=== PATIENT | female | born 1950 | race Caucasian/White ===

== ENCOUNTER → 2020-09-27 11:30 | Outpatient (CLI) | payer OTHER, SELFPAY ==
[2020-09-27 13:31] LABS: COVID19 -Nasal RAPID Negative (Negative)
== END ==
PROVIDERS: PCP Nurse Practitioner Family; Visit Provider Physician Assistant
DX: Z20.822 Contact with and (suspected) exposure to COVID-19 (principal)
CPT/HCPCS: 87635

== ENCOUNTER 2020-09-29 08:49 | Day surgery (SDC) | payer OTHER, SELFPAY ==
[2020-09-29] VITALS (22 sets, daily range): BP systolic 108–161; BP diastolic 50–92; PULSE 59–87; RESP 11–96; TEMP 35.8–36.5; O2SAT 90–98; BMI 48.2
--- NOTE | 2020-09-29 09:25 | DI.RAD.S_ITS ---
PROCEDURE: XR KNEE RT 1TO2V INDICATIONS: post op total knee TECHNIQUE: 3 views of the knee were acquired. COMPARISON: None. FINDINGS: Bones: Right knee arthroplasty overlying postsurgical changes. In expected postoperative alignment. Soft tissues: Overlying postsurgical changes. IMPRESSION: Expected postoperative alignment Dictated by: Dread Jiménez M.D. on 09/29/2020 at 15:14 Approved by: Dread Jiménez M.D. on 09/29/2020 at 15:16
[2020-09-29] MEDS: LACTATED RINGERS 1,000 ML 42 ML IV ×2 (09:55→12:56)
--- NOTE | 2020-09-29 09:58 | PM.PREOP ---
Pre-operative Note COVID-19 COVID-19 status: Negative Result date/Date tested (Pos, Neg/Pending): 09/27/20 Interval Note History & Physical reviewed/Exam performed by Physician: Yes Changes to H&P: No
[2020-09-29] MEDS: PREGABALIN 75 MG CAPSULE PO (09:59)
[2020-09-29] MEDS: ACETAMINOPHEN 325 MG TABLET 975 MG PO (10:00)
--- NOTE | 2020-09-29 10:20 | P.OP_ITS ---
Operative Date/Time/Diagnoses Date of procedure: 09/29/20 Time of procedure: 12:57 Pre-op diagnosis: Right knee osteoarthritis Post-op diagnosis: same Procedure & Clinicians Procedure: Right total knee replacement Same procedure as scheduled: Yes Indications: The patient has had progressively worsening right knee pain with radiographic changes consistent with arthritis. Non-operative management has failed and the patient has requested total knee replacement. The risks, benefits and alternatives to surgery were discussed with the patient prior to proceeding. Risks discussed included, but were not limited to, failure to relieve pain, stiffness, infection, nerve damage, deep venous thrombosis, pulmonary embolism, stroke, coma, heart attack, permanent paralysis and , as well as the potential need for eventual revision of the prosthetic. Surgeon: Emanuel Dan [employer] Head Inspector: Mac Bhandari Click Yes if Unassisted: No Anesthesia Type: General and Local Operative Notes Findings: Severe tricompartmental osteoarthritis with large osteophytes. Closure Type: primary Specimen(s): none sent Prosthetic devices, grafts, tissues, transplants, or devices: Implants used in this procedure were manufactured by the [employer] and included the BCS II Journey total knee replacement with a size 5 right cobalt chromium femur, a size 4 right non porous tibial base plate, a 10 mm cross- linked polyethylene insert and a 29 mm oval Arely II patella. Applied: implant(s) Estimated Blood Loss (mL): 25 Blood products transfused: none Tourniquet time (min): 62 Procedure in detail: The patient was seen in the pre-operative area, where the patient identified the right knee as the operative site and this was marked with my initials. The patient received pre-operative antibiotics, and was taken to the operating room and placed on the operative table in the supine position. After satisfactory anesthesia, a payroll master out was performed. The right leg was encircled with a tourniquet about the proximal thigh, and the leg was prepared from the toes to the tourniquet with ChloroPrep in the usual fashion and draped through sterile drapes. The leg was elevated and exsanguinated with Eschmark bandage and the tourniquet inflated to 250 mmHg pressure. The knee was approached through an approximately 18 cm incision centered over the patella and carried into the knee through a medial parapatellar arthrotomy. The anterior osteophytes and soft tissues were removed. The rotational landmarks of Butterfield's line and the transepicondylar axis were marked on the femur with electrocautery, and intramedullary guide holes for the femur and tibia were created. The distal femoral cut was made in 6 degrees of valgus using the intramedullary guide at the primary cut setting. The proximal tibial cut was then made using the intramedullary guide, taking 9 mm of bone off the less involved side. The extension gap was checked and the rotation of the femoral component confirmed with the gap balancing system. The anterior, posterior and chamfer cuts were then made. The posterior osteophytes and soft tissues were then removed. The posterior capsule was injected with part of a mixture of 60 ml 0.25% Marcaine mixed with 20 ml Exparel and 4 mg of morphine for post-operative pain control. The remainder of this mixture was injected into the capsule and subcutaneous tissues during cement curing. The tibia was prepared with the rotation set by an extra medullary guide. Trial tibial and femoral components were then placed and the intercondylar notch cut through the femoral trial. Range of motion was 0-120 degrees with further flexion limited by the patient's body habitus, with good stability throughout the range. The patella was then cut to accommodate the patellar prosthetic. There was a tendency for lateral tilt of the patella, so a ?pie crust? lateral release was performed. The trials were then removed, and the femoral hole plugged with a bone plug. The bone was prepared with pulsatile lavage, and dried with a sponge. Cement was applied and the final prosthetics placed. Excess cement was removed during and after cement curing. After confirming there was no extruded cement posteriorly, the final tibial insert was placed. The knee was copiously irrigated and the tourniquet deflated. Hemostasis was obtained. The capsule was closed with interrupted # 2 polyester suture. The subcutaneous layer was closed with 3-0 Vicryl, and the skin with a running 3-0 V-Lock suture and Dermabond. A Caryn dressing was applied and the patient was taken to recovery having tolerated the procedure well. Complications: none Post-operative Condition: stable Disposition: PACU Plan for aftercare: The patient will be maintained on a standard total knee replacement protocol with weight bearing as tolerated. The patient will receive aspirin and sequential compression devices for DVT prophylaxis. The patient will be discharged home when safe for the home environment.
[2020-09-29] MEDS: CEFAZOLIN 2 GM/100 ML FROZ.PIGGY IV (10:48)
[2020-09-29] MEDS: TRANEXAMIC ACID 1,000 MG VIAL 1000 MG INJ ×2 (10:55→12:13)
--- NOTE | 2020-09-29 11:11 | SUR.OPER ---
Supine on padded OR bed. Pillow under head, arms secured on padded armboards <90 degree abduction. Safety belt across torso. Non-operative leg secured with tape over blanket over lower leg. Operative leg secured in DeMayo/Rene positioner.
[2020-09-29] MEDS: BUPIVACAINE 0.25% W/ EPI (PF) 10 ML VIAL 60 ML INJ (11:18)
[2020-09-29] MEDS: BUPIVACAINE LIPOSOME 266 MG/20 ML VIAL INJ (11:19)
[2020-09-29] MEDS: MORPHINE 4 MG/ML INJ INJ (11:20)
[2020-09-29] MEDS: OXYCODONE IR 5 MG TABLET PO ×3 (13:35→15:15)
[2020-09-29] MEDS: HYDROMORPHONE 2 MG INJ IV ×2 (13:35→13:57)
--- NOTE | 2020-09-29 14:29 | SUR.PHASEI ---
Caryn dressing was flashing red light, notified Shahriar WINTER, attempted to reinforce dressing 2x, still leaking. Ok to change dressing per Shahriar. Dressing changed, no leak. no sayda wrap in place.
[2020-09-29] MEDS: LACTATED RINGERS 1,000 ML 100 ML IV (14:53)
[2020-09-29] MEDS: ACETAMINOPHEN 325 MG TABLET 650 MG PO ×2 (15:15→21:16)
[2020-09-29] MEDS: HYDROMORPHONE 0.5 MG INJ 0.2 MG IV (16:45)
[2020-09-29] MEDS: OXYCODONE IR 10 MG TABLET PO ×2 (18:19→21:16)
[2020-09-29] MEDS: DOCUSATE 100 MG CAPSULE PO (21:15)
[2020-09-29] MEDS: hydrOXYzine pamoate 25 MG CAPSULE PO (21:16)
[2020-09-29] MEDS: ASPIRIN EC 81 MG TABLET PO (21:16)
--- NOTE | 2020-09-29 21:52 | PC.NURSE ---
Evening Shift Note- Patient arrived to room via bed from PACU at 1440. Patient alert and oriented and able to able to make needs known to staff. PRN PO Oycodone given as ordered per patient request for c/o pain at 4-510. Patient tolerated with no s/s of ASE noted. Admit questions done, medications reviewed, physical assessment and skin check conpleted. oriented patient to bed and bed controls, room, bathroo, lights, ohone, menu, nd call monk/tv remote. YOCASTA dressing c/d/i and functioning properly at this time.Safety measures in place. Patient agrees [facility] assistance. bed alarm activated. Call monk and phone within reach. Will continue to monitor.
[2020-09-30] MEDS: HYDROMORPHONE 2 MG TABLET PO ×2 (00:08→03:41)
[2020-09-30] MEDS: LACTATED RINGERS 1,000 ML 100 ML IV (03:06)
[2020-09-30 04:00] VITALS: BP 133/81; PULSE 70; RESP 18; TEMP 36.6; O2SAT 96
[2020-09-30 05:55] LABS: Hematocrit 39.7 % (36-46); Hemoglobin 13.2 g/dL (12.0-16.0)
[2020-09-30] MEDS: PANTOPRAZOLE 20 MG TABLET PO (06:51)
[2020-09-30] MEDS: OXYCODONE IR 5 MG TABLET PO (06:53)
[2020-09-30 07:24] VITALS: PULSE 61; RESP 16; O2SAT 95
--- NOTE | 2020-09-30 07:43 | P.DS_ITS ---
History of Present Illness History of Present Illness Date Patient Seen: 09/30/20 Time Patient Seen: 07:43 Chief complaint: RIGHT TKA *OPB* Discharge Providers Provider Discharge Date: 09/30/20 Primary care physician: SHERIE De La Garza Consults: 09/29/20 14:44 Consult to Discharge Planning Routine Comment: Consult to Physical Therapy Evaluate & Treat Comment: Physician Instructions: postop TKA protocol Consult to Respiratory Therapy Evaluate & Treat Comment: Physician Instructions: Evaluate and treat Discharge provider: Melvin Pena PA-C Summary Hospital Course Discharge Diagnosis: Right knee osteoarthritis Status post right total knee arthroplasty Hospital Course: Female 70 years-old with the above-listed diagnoses consented for the above listed procedure presenting to the OR undergoing said procedure without difficulty or complication and admitted for rehabilitation postoperatively and appropriately convalesced without significant issue at the time of discharge the patient was stable for disposition plan without significant complaints and verbalized understanding of postoperative care inst ructions and follow-up in clinic for re-evaluation or sooner as needed. Status at Discharge Cognitive/behavioral status at discharge: oriented Functional status at discharge: uses cane/walker Overall status at discharge: patient is progressing back to baseline Time Spent with Patient Time spent: Less than 30 minutes Exam Vital Signs (past 8 hours): - 09/30/20 04:00 09/30/20 07:24 Temperature 97.9 F Pulse Rate 70 61 Respiratory Rate 18 16 Blood Pressure 133/81 Pulse Oximetry 96 95 Oxygen Delivery Method Room Air Oxygen Flow Rate 0 Narrative Exam Narrative: Female 70 years-old seen resting comfortably in no apparent distress, alert and oriented x3. Regular heart rate and inspiratory effort. Dressing clean, dry and intact. Distal affected extremities are neurovascularly intact with no signs or symptoms of DVT. Objective Labs Result Diagrams: 09/30/20 05:25 Labs: Laboratory Results - last 24 hr 09/30/20 05:25 Hgb 13.2 Hct 39.7 PFSH Medical History (Updated 09/26/20 @ 16:02 by Emilia George RN) Arthritis Depression Fracture Headache, migraine History of benign breast biopsy Hypertension LAFB (left anterior fascicular block) Osteoporosis Primary osteoarthritis of right knee RBBB Thyroid disease Tumor of soft tissue of neck Social History household members: children Smoking Status: Never smoker alcohol intake: never Discharge Assessment & Plan Assessment and Plan Assessment: Right knee osteoarthritis Status post right total knee arthroplasty Plan of Treatment: Discharge home today. DVT prophylaxis aspirin 81 mg twice a day for 6 weeks. Weight bear as tolerated on right lower extremity. Right total knee care protocols apply. Follow-up in 2 weeks for re-evaluation or sooner as needed. Discharge Plan Discharge Plan Patient Disposition: Home Discharge orders & Medications Discharge Orders: Discharge (Order); Ordered 09/30/20 Ordered By: Melvin Pena Prescriptions: New aspirin 81 mg Tablet,Delayed Release (Dr/Ec) 81 mg PO BID Qty: 90 RF: 0 Continued fluticasone propionate 50 mcg/actuation Blister With Device 2 inh INHALATION DAILY RF: 0 alendronate 70 mg Tablet 70 mg PO DAILY RF: 0 omeprazole 20 mg Capsule,Delayed Release(Dr/Ec) 20 mg PO DAILY RF: 0 nystatin 100,000 unit/gram Powder 1 applic TOPICAL DAILY RF: 0 oxycodone 5 mg Tablet 5 - 10 mg PO Q3H PRN (Reason: Pain) RF: 0 rosuvastatin 10 mg Tablet 10 mg PO DAILY RF: 0 Follow up/Referrals: Cristiane Claudio ARNP [Primary Care Provider] - Emanuel Dan MD [Physician] - (F/U in 2 weeks) Diet/Activity/Treatments Diet: Diet as Tolerated Activity: The patient will be maintained on a standard total knee replacement protocol with weight bearing as tolerated. Cold/Heat Therapy: Ice 20 min / hr as tolerated. Other treatments: Take aspirin 81 mg by mouth twice daily for 6 weeks. Skin/Wound/Dressing Care Report to your healthcare provider any signs of infection, such as:: chills, fever, night sweats, increased pain, unusual drainage and unusual redness Dressing: Keep clean, dry and intact. Call as needed. Visit Report/Discharge Packet Instructions: DI for Knee Replacement Stand Alone Forms: Surgery Discharge Discharge Data Primary Care Provider: Cristiane Claudio Attending Provider: Emanuel Dan
[2020-09-30] MEDS: DOCUSATE 100 MG CAPSULE PO (08:30)
[2020-09-30] MEDS: ROSUVASTATIN 10 MG TABLET PO (08:30)
[2020-09-30] MEDS: ASPIRIN EC 81 MG TABLET PO (08:30)
[2020-09-30] MEDS: ACETAMINOPHEN 325 MG TABLET 650 MG PO (08:30)
[2020-09-30 08:47] VITALS: BP 116/70; PULSE 66; RESP 20; TEMP 36.2; O2SAT 96
--- NOTE | 2020-09-30 09:33 | PT.IIE ---
Current Diagnoses Unilateral primary osteoarthritis, right knee (09/29/20) Surgery Performed Operation Date: 09/29/20 10:45 Actual Procedures p Total Knee Arthroplasty(Right) - Emanuel Dan MD Medical History (Last Updated 09/26/20 @ 16:02 by Emilia George RN) Arthritis Depression Fracture Headache, migraine History of benign breast biopsy Hypertension LAFB (left anterior fascicular block) Osteoporosis Primary osteoarthritis of right knee RBBB Thyroid disease Tumor of soft tissue of neck Physical Therapy Inpatient Evaluation/Re-Eval M1 PT/OT-IP Prior Functional Status Start: 09/29/20 14:55 Freq: NEEDED Status: Active Protocol: Document 09/30/20 08:20 MB (Rec: 09/30/20 09:32 MB [id number]) Medical Review Prior Functional Status Medical History Reviewed Yes Diet/Fluid Consistency Regular Communication WNLs Mobility and Gait Gait with RW, went to pre-op OPPT visit Activities of Daily Living and IADL's Mod I and daughter assist as needed, lives with daughter, 2 steps and no rail to enter home, tub bench Social History Household Members children Living Arrangements House Number of Floors (Floors) One Floor Number of Stairs To Enter/Railing? 2 steps and no rail Home Equipment Front Wheel Walker,Tub Transfer Bench,Grab Bars Near Toilet,Grab Bars In Shower Employment Status Retired M2 PT-IP Current Condition Start: 09/29/20 14:55 Freq: NEEDED Status: Active Protocol: Document 09/30/20 08:20 MB (Rec: 09/30/20 09:32 MB [id number]) Physical Therapy Current Condition Current Condition Evaluation Date 09/30/20 Treatment Diagnosis R TKR Onset Date 09/29/20 Precautions Other Precautions WBAT right LE Weight Bearing Status Weight Bearing Status Weight Bear as Tolerated M3 PT-IP Subjective Start: 09/29/20 14:55 Freq: NEEDED Status: Active Protocol: Document 09/30/20 08:20 MB (Rec: 09/30/20 09:32 MB [id number]) Subjective Physical Therapy Visit Type Type Initial Evaluation Visit Start Time 08:20 Visit Stop Time 09:11 Total Visit Minutes 51 Number of IT RISK ADVISOR Visits 0 Physical Therapy Visit Comments Patient Comments Pt is comfortable in the bed, would like to finish fruit and yogurt before evaluation Patient Goals To go home. Pt is A&O. Pain is 4/10 at rest before treatment and 4/10 after treatment, right knee. Her right LE is edematous and has purplish ecchymosis. Therapy Pain Assessment Pain When Pain Assessed At Rest Pain Present Pain Present Pain Reported Location right knee Intensity 4 Scale Used Numeric (0 - 10) Description Acute Pain Management Techniques Apply Cold,Elevation,Re- positioning,Timing of Activity with Medications M4 PT-IP Mobility and Gait Start: 09/29/20 14:55 Freq: NEEDED Status: Active Protocol: Document 09/30/20 08:20 MB (Rec: 09/30/20 09:32 MB [id number]) PT-Bed Mobility Assessment Supine to Sit Supine to Sit Independent,Head of Bed Elevated,Bedrails Sit to Supine Sit to Supine Independent,Head of Bed Elevated,Bedrails Scooting Scooting to Edge of Bed Standby Assistance PT-Transfer Assessment Sit to and From Stand Sit to and from Stand Standby Assistance,1 Person Assistance,Use of Upper Extremities Equipment Transfer Assistive Device Gait Belt,Front Wheeled Walker Orthotic/Prosthetic Devices or Brace: No Transfers Transfer Destination Chair,Toilet Transfer Technique Stand Step Pivot Transfer Ability Level of Assist Standby Assistance Comments Mobility Comments Pt mobilizes well in the bed with HOB increased and use of rails. Bed is high and pt is able to manage her right leg with dangling it and can scoot to the EOB using her hands. No guarding of right leg. Many transfers: bed to walker, walker to commode, commode to walker, walker to w/c, w/c to walker and w/c to walker to chair and pt is superv to A for all of these except for PT checking that walker is still and w/c is still and locked Gait Assessment Gait Gait Assistance Required: Standby Assistance Distance (Feet) 70 Able to Maintain Weight Bearing Status Yes During Gait Assistive Devices Assistive Device Gait Belt,Front Wheeled Walker Orthotic/Prosthetic Devices or Brace: No Gait Deviations General Gait Pattern Antalgic,Flexed Trunk,Lateral Trunk Lean,Wide Based Gait Factors Limiting Gait Function Factors Limiting Gait Function Limited Range of Motion Comments Gait Comments Pt with morbid obesity and soft tissue approximation of legs, wide VERNON and having to shift weight back and lateral to back leg on step to get enough room to clear step and manage inside walker. Her gait is slow and antalgic with increased effort and perspiration but she does well . She gait trains 15' bed to commode, 15' commode to sink, 15' sink to w/c, 7' w/c to steps, performs 2 steps and then 70'. Pt use her RW for all gait. Stair Climbing Assessment Evaluation Level of Assist On Stairs Minimal Assistance,1 Person Assistance Devices Stair Climbing Assistive Devices Front Wheel Walker Technique/Endurance Stair Climbing Direction Ascend and Descend Stair Climbing Technique Step to Step Number of Steps Climbed 2 Query Text: Stair Climbing Set # Repetitions (reps) 1 Comments Stair Climbing Comments PT demos backward ascend with walker and pt is nervous with this and reaches for B hand rails but there are no rails at home and PT encourages her to hold onto walker with PT pushing through walker's back legs to help her ascend and descend. Pt does perform with hesitancy. She has wider steps at home and may be able to perform forward and PT ed her how to work with daughter with walker with steps and pt states that she feels she can manage this with her daughter PT-Balance Assessment Sitting Balance and Reactions Static Sitting Balance Ability Good Dynamic Sitting Balance Ability Good Standing Balance and Reactions Static Standing Balance Ability Good Dynamic Standing Balance Ability Good Device Used RW or none Comments Other Balance Tests/Deviations/Treatment UE support for dynamic sitting : and standing M6 PT-IP Treatment Start: 09/29/20 14:55 Freq: NEEDED Status: Active Protocol: Document 09/30/20 08:20 MB (Rec: 09/30/20 09:32 MB [id number]) Physical Therapy Treatment Exercises Exercises Ankle Pumps,Gluteal Sets,Quad Sets,Heel Slides Education Education Provided Weight Bearing Status,Post-Op Packet,Safety Other Treatments Other Treatment Performed Ed in use of incentive spirometer, stair training and ed, use of ice and elevation M7 PT-IP Assessment and Plan Start: 09/29/20 14:55 Freq: NEEDED Status: Active Protocol: Document 09/30/20 08:20 MB (Rec: 09/30/20 09:32 MB [id number]) PT Summary Assessment and Plan Potential Rehabilitation Potential Good Status of Condition at Evaluation Stable Summary Impairments Pain,ROM,Strength,Balance,Bed Mobility,Transfers,Gait, Activity Tolerance Progress Towards Goals Safe For Discharge Assessment Summary Pt is safe to d/c home with her daughter's assist as she presents with expected range losses, strength and gait impairments post-op day 1 after right TKR. Pt's AROM right knee in hook lying is 10 -30 deg and MMT ankle only with DF and great toe extension 4/5. Pt's LLE has functional strength. Pt responds well to post-op PT and is able to mobilized in the bed with use of rails and HOB increased, perform transfers and gait with superv and stair training with asst. PT does assist with hygiene after voiding and pt will have daughter's assist at d/c. She is ready to d/c home with her daughter's assist and will start OPPT in [place] in the next week, per her report. Frequency of Treatment Frequency Of Treatment Discharge Recommendations To Nursing Amount of Assist Needed Standby Assistance,1 Person Assist Discharge Recommendations PT Discharge Recommendations Home with 24/01 Assist Available,Outpatient PT Transportation Needs at Discharge Private Vehicle
[2020-09-30] MEDS: OXYCODONE IR 10 MG TABLET PO (10:10)
--- NOTE | 2020-09-30 10:48 | PC.NURSE ---
Addendum entered by Jenny Bazan R.N. 09/30/20 13:25: Home via private vehicle accompanied by daughter opal. Original Note: Day shift note: Patient discharged home per MD order and cleared by PT. Discharge instructions given to patient and daughter, discussed importance of F/U with Ortho on scheduled appointment in 2 weeks, new medications, mobility precautions, and YOCASTA dressing care. Both verbalized understanding of instructions. Physical therapy set for outpatient.
== END 2020-09-30 13:20 | disposition home or self-care (01) ==
LOC: OR 08:52 → AC 08:54
PROVIDERS: PCP Nurse Practitioner Family; Referring Provider Orthopaedic Surgery; Visit Provider Orthopaedic Surgery
PROC: 0SRC0JZ Replacement of Right Knee Joint with Synthetic Substitute, Open Approach (ICD-10-PCS; CPT 27447; principal; 2020-09-29 10:45)
DX: M17.11 Unilateral primary osteoarthritis, right knee (principal); M25.761 Osteophyte, right knee; K21.9 Gastro-esophageal reflux disease without esophagitis; I10 Essential (primary) hypertension
CPT/HCPCS: 27447; 36415; 73560; 85014; 85018; 97116; 97161; 97530; C1776; C9290; J0690; J1100; J1170; J2250; J2270; J2405; J2704; J3010

== ENCOUNTER → 2022-05-31 12:13 | Outpatient (CLI) | payer OTHER, SELFPAY ==
[2020-09-29 14:45] VITALS: BMI 48.2
[2022-05-31 13:24] LABS: COVID19 -Nasal RAPID Negative (Negative)
== END ==
PROVIDERS: PCP Nurse Practitioner Family; Referring Provider Orthopaedic Surgery; Visit Provider Orthopaedic Surgery
DX: Z11.59 Encounter for screening for other viral diseases (principal)
CPT/HCPCS: 87635; C9803

== ENCOUNTER 2022-06-02 08:03 | Day surgery (SDC) | payer OTHER, SELFPAY ==
[2020-09-29 14:45] VITALS: BMI 48.2
[2022-05-19 13:51] VITALS: BMI 50.5
[2022-06-02] VITALS (13 sets, daily range): BP systolic 111–170; BP diastolic 54–84; PULSE 77–98; RESP 11–22; TEMP 35.7–36.8; O2SAT 92–96; BMI 50.3
--- NOTE | 2022-06-02 06:00 | DI.RAD.S_ITS ---
PROCEDURE: XR KNEE LT 1TO2V INDICATIONS: TKA TECHNIQUE: 2 view(s) of the knee acquired. COMPARISON: [facility], CR, XR KNEE RT 1TO2V, 09/29/2020, 13:23. [facility], CR, XR KNEE 4+ VIEWS LEFT, 03/30/2022, 14:37. FINDINGS: Bones: Patient is status post knee joint arthroplasty. Hardware components are in expected positions. Visualized bony structures are intact. Soft tissues: Overlying postoperative changes are noted. IMPRESSION: Normal postoperative examination. Dictated by: Victor Manuel Dickens M.D. on 06/02/2022 at 13:20 Approved by: Victor Manuel Dickens M.D. on 06/02/2022 at 13:21
[2022-06-02] MEDS: ACETAMINOPHEN 325 MG TABLET 975 MG PO (08:36)
[2022-06-02] MEDS: PREGABALIN 75 MG CAPSULE PO (08:36)
[2022-06-02] MEDS: LACTATED RINGERS 1,000 ML 42 ML IV (09:21)
--- NOTE | 2022-06-02 09:34 | PM.PREOP ---
Pre-operative Note COVID-19 COVID-19 status: Negative Result date/Date tested (Pos, Neg/Pending): 05/31/22 Interval Note History & Physical reviewed/Exam performed by Physician: Yes Changes to H&P: No
--- NOTE | 2022-06-02 10:27 | SUR.OPER ---
Supine on padded OR bed. Pillow under head, arms secured on padded armboards <90 degree abduction. Safety belt across torso. Non-operative leg secured with tape over blanket over lower leg. Operative leg secured in DeMayo positioner. Foam padded brace at thigh of operative leg.
[2022-06-02] MEDS: CEFAZOLIN 3 GM IN 0.9 % NACL 3 GM/100 ML PLAST..BAG IV ×2 (11:17→18:50)
[2022-06-02] MEDS: TRANEXAMIC ACID 1,000 MG VIAL 2000 MG INJ ×2 (11:25→12:34)
[2022-06-02] MEDS: BUPIVACAINE LIPOSOME 266 MG/20 ML VIAL INJ (11:35)
[2022-06-02] MEDS: MORPHINE 4 MG/ML INJ INJ (11:35)
[2022-06-02] MEDS: BUPIVACAINE 0.25% (PF) 60 ML, EPINEPHrine 0.3 MG INJ (11:36)
--- NOTE | 2022-06-02 11:41 | PC.NURSE ---
Day shift: Pt not in room 202 at this time (1140).
--- NOTE | 2022-06-02 13:03 | PM.OP.1 ---
Operative Date/Time/Diagnoses Date of procedure: 06/02/22 Time of procedure: 13:04 Pre-op diagnosis: 1. Left knee osteoarthritis 2. Morbid obesity Post-op diagnosis: same Procedure & Clinicians Procedure: Left total knee replacement Same procedure as scheduled: Yes Indications: The patient has had progressively worsening left knee pain with radiographic changes consistent with arthritis. Non-operative management has failed and the patient has requested total knee replacement. The risks, benefits and alternatives to surgery were discussed with the patient prior to proceeding. Risks discussed included, but were not limited to, failure to relieve pain, stiffness, infection, nerve damage, deep venous thrombosis, pulmonary embolism, stroke, coma, heart attack, permanent paralysis and , as well as the potential need for eventual revision of the prosthetic. Surgeon: Emanuel Dan Barrel Header: Anna Kirkpatrick Click Yes if Unassisted: No Anesthesia Type: General and Local Operative Notes Findings: Severe tricompartmental osteoarthritis. Closure Type: primary Specimen(s): none sent Prosthetic devices, grafts, tissues, transplants, or devices: Implants used in this procedure were manufactured by the [employer] and included the BCS II Journey total knee replacement with a size 5 left cobalt chromium femur, a size 4 left non porous tibial base plate, a 9 mm cross-linked polyethylene tibial insert and a 29 mm oval Arely II patella. Applied: implant(s) Estimated Blood Loss (mL): 50 Blood products transfused: none Tourniquet time (min): 63 Procedure in detail: The patient was seen in the pre-operative area, where the left knee was identified as the operative site and this was marked with my initials. The patient received pre-operative antibiotics, and was taken to the operating room and placed on the operative table in the supine position. After satisfactory anesthesia, a inspector timers out was performed. The left leg was encircled with a tourniquet about the proximal thigh, and the leg was prepared from the toes to the tourniquet with ChloroPrep in the usual fashion and draped through sterile drapes. The leg was elevated and exsanguinated with Eschmark bandage and the tourniquet inflated to 300 mmHg pressure. The knee was approached through an approximately 20 cm incision centered over the patella and carried into the knee through a medial parapatellar arthrotomy. The anterior osteophytes and soft tissues were removed. The rotational landmarks of [place]'s line and the transepicondylar axis were marked on the femur with electrocautery, and intramedullary guide holes for the femur and tibia were created. The distal femoral cut was made in 6 degrees of valgus using the intramedullary guide at the primary cut setting. The proximal tibial cut was then made using the intramedullary guide, taking 9 mm of bone off the less involved side. The anterior, posterior and chamfer cuts were then made. The posterior osteophytes and soft tissues were then removed. The posterior capsule was injected with part of a mixture of 60 ml 0.25% Marcaine mixed with 20 ml Exparel and 4 mg of morphine for post-operative pain control. The remainder of this mixture was injected into the capsule and subcutaneous tissues during cement curing. The tibia was prepared with the rotation set by an extra medullary guide. Trial tibial and femoral components were then placed and the intercondylar notch cut through the femoral trial. Range of motion was 0-100 degrees with further flexion limited by the patient's obesity, with good stability throughout the range. The patella was then cut to accommodate the patellar prosthetic. There was was a tendency for lateral tracking of the patella so a lateral release was performed from the outside in using the electrocautery. The trials were then removed, and the femoral hole plugged with a bone plug. The bone was prepared with pulsatile lavage, and dried with a sponge. Cement was applied and the final prosthetics placed. Excess cement was removed during and after cement curing. After confirming there was no extruded cement posteriorly, the final tibial insert was placed. The knee was copiously irrigated and the tourniquet deflated. Hemostasis was obtained. The capsule was closed with interrupted # 2 polyester sutures. The subcutaneous layer was closed with 3-0 Vicryl, and the skin with a running 3-0 V-Lock suture and Dermabond. A Caryn dressing was applied and the patient was taken to recovery having tolerated the procedure well. The patient's morbid obesity considerably increased the complexity and difficulty of this procedure. Her knee was not able to flex beyond 100? which limited access for placement of the prosthetics. In addition retraction was made considerably more difficult by the volume of adipose tissue involved. The services of Dayanara Kirkpatrick were required as a certified ophthalmic surgical assistant to provide retraction to protect vital structures, positioning and exposure of the knee. Without her services the procedure could not have been safely accomplished. Complications: none Post-operative Condition: stable Disposition: PACU Plan for aftercare: The patient will be maintained on a standard total knee replacement protocol with weight bearing as tolerated. The patient will receive aspirin and sequential compression devices for DVT prophylaxis. The patient will be discharged home when safe for the home environment.
[2022-06-02] MEDS: OXYCODONE IR 5 MG TABLET PO (14:00)
--- NOTE | 2022-06-02 14:30 | PC.NURSE ---
Day shift: Pt on unit from PACU at approx 1430. A&Ox4. Daughter in room support. BP elevated 165/95. RA 96%. Left foot numbness noted. Can wiggle toes and bilat feet. Good cap refill and PPP. Agrees to not get OOB w/o help from staff. Oriented to room and call light.
[2022-06-02] MEDS: LACTATED RINGERS 1,000 ML 100 ML IV (14:58)
[2022-06-02] MEDS: OXYCODONE IR 10 MG TABLET PO (15:03)
--- NOTE | 2022-06-02 15:15 | PT.IPTN ---
Current Diagnoses Unilateral primary osteoarthritis, left knee (06/02/22) Surgery Performed Operation Date: 06/02/22 10:00 Actual Procedures p Total Knee Arthroplasty(Left) - Emanuel Dan MD Physical Therapy Treatment Note M3 PT-IP Subjective Start: 06/02/22 15:27 Freq: NEEDED Status: Active Protocol: Document 06/02/22 15:15 AB (Rec: 06/02/22 15:32 AB [email or web address]) Subjective Physical Therapy Visit Type Type Patient Refusal Notes PT eval order received. EMR reviewed. checked on pt but pt refused PT. daughter in room. Asked pt regarding PLOF and home set up and agreed to have caregiver training tomorrow at 9am.
[2022-06-02] MEDS: IBUPROFEN 400 MG TABLET PO ×2 (16:16→21:02)
[2022-06-02] MEDS: HYDROMORPHONE 2 MG TABLET PO ×2 (18:02→21:01)
[2022-06-02] MEDS: ACETAMINOPHEN 325 MG TABLET 650 MG PO (18:02)
[2022-06-02] MEDS: ASPIRIN EC 81 MG TABLET PO (21:01)
[2022-06-02] MEDS: DOCUSATE 100 MG CAPSULE PO (21:02)
[2022-06-03] MEDS: IBUPROFEN 400 MG TABLET PO ×4 (00:18→12:08)
[2022-06-03] MEDS: OXYCODONE IR 5 MG TABLET PO (00:19)
[2022-06-03] MEDS: ACETAMINOPHEN 325 MG TABLET 650 MG PO ×3 (00:19→12:08)
[2022-06-03 00:39] VITALS: BP 128/74; PULSE 86; RESP 20; TEMP 37.1; O2SAT 96
[2022-06-03] MEDS: LACTATED RINGERS 1,000 ML 100 ML IV (01:40)
[2022-06-03 04:15] VITALS: BP 104/62; PULSE 75; RESP 16; TEMP 37.6; O2SAT 95
[2022-06-03] MEDS: CEFAZOLIN 3 GM IN 0.9 % NACL 3 GM/100 ML PLAST..BAG IV (04:21)
[2022-06-03] MEDS: OXYCODONE IR 10 MG TABLET PO ×2 (07:45→10:54)
--- NOTE | 2022-06-03 07:47 | PM.DS.1 ---
History of Present Illness History of Present Illness Date Patient Seen: 06/03/22 Time Patient Seen: 07:47 Chief complaint: Left TKA *OPB* Narrative: The history and physical are contained in the chart previously dictated note. Please refer to that note for this information. Discharge Providers Provider Date of admission: June 02, 2022 Discharge Date: 06/03/22 Primary care physician: SHERIE De La Garza Consults: 06/02/22 14:29 Consult to Discharge Planning Routine Comment: Consult to Physical Therapy Evaluate & Treat Comment: Physician Instructions: postop TKA protocol Discharge provider: Emanuel Dan MD Summary Hospital Course Discharge Diagnosis: 1. Left knee osteoarthritis 2. Morbid obesity contributing to difficulty during surgery Hospital Course: The patient was admitted to the hospital and taken directly to the operating room on June 02, 2022. She underwent a left total knee replacement. The procedure was lengthened and made more difficult by her morbid obesity. She tolerated the procedure well however and ambulated to use the commode independently during the evening. At the time of this discharge it is anticipated she will be able to go home in the care of her daughter today. Status at Discharge Cognitive/behavioral status at discharge: at baseline, oriented Functional status at discharge: uses cane/walker Overall status at discharge: patient is progressing back to baseline Time Spent with Patient Time spent: Less than 30 minutes Exam Vital Signs (past 8 hours): - 06/03/22 00:39 06/03/22 04:15 Temperature 98.7 F 99.6 F Pulse Rate 86 75 Respiratory Rate 20 16 Blood Pressure 128/74 104/62 Pulse Oximetry 96 95 Oxygen Flow Rate 1.5 0 Oxygen Delivery Method Room Air Oxygen Flow Rate 0 Narrative Exam Narrative: Left knee wound is dressed with no drainage on the bandage. Calf is soft. Light touch and motion are intact in the left lower extremity. FORMERLY [facility], [facility]1983 Medical History Acid reflux Arthritis Depression Fracture Glomus tumor Headache, migraine History of benign breast biopsy HLD (hyperlipidemia) Hyperparathyroidism Hypertension LAFB (left anterior fascicular block) Osteoarthritis Osteoporosis Primary osteoarthritis of right knee RBBB Tumor of soft tissue of neck Surgical History History of lumpectomy of right breast (1995) History of total right knee replacement (09/29/20) Hx of colonoscopy Social History household members: children and other Smoking Status: Never smoker alcohol intake: current Discharge Assessment & Plan Assessment and Plan Assessment: Stable postoperative day 1 status post left total knee replacement. She has already independently ambulated in her room. Plan of Treatment: Discharge today with follow-up in 10-14 days in my office provided she passes physical therapy this morning. Prescriptions for oxycodone have been called to the pharmacy. She is been instructed in the use of Tylenol and ibuprofen for additional pain control in the use of low-dose aspirin for DVT prophylaxis. Discharge Plan Discharge Plan Patient Disposition: Home Discharge orders & Medications Discharge Orders: Discharge (Order); Ordered 06/03/22 Ordered By: Emanuel Dan Prescriptions: New acetaminophen 325 mg Tablet 650 mg PO Q6HR Qty: 250 0RF aspirin 81 mg Tablet,Delayed Release (Dr/Ec) 81 mg PO BID Qty: 84 0RF ibuprofen 400 mg Tablet 400 mg PO Q4HR Qty: 250 0RF oxycodone 5 mg Tablet 5 mg PO Q4H PRN (Reason: Pain, Moderate (4-6)) Qty: 40 0RF Continued fluticasone propionate 50 mcg/actuation Blister With Device 2 inh INHALATION DAILY alendronate 70 mg Tablet 70 mg PO QWEEK Label Comments: Mondays omeprazole 20 mg Capsule,Delayed Release(Dr/Ec) 20 mg PO Q OTHER DAY nystatin 100,000 unit/gram Powder 1 applic TOPICAL DAILY rosuvastatin 10 mg Tablet 10 mg PO DAILY Discontinued acetaminophen 325 mg Tablet 650 mg PO TID ibuprofen 200 mg Tablet 400 mg PO TID Follow up/Referrals: Cristiane Claudio ARNP [Primary Care Provider] - Emanuel Dan MD [Physician] - As previously scheduled Diet/Activity/Treatments Diet: Diet as Tolerated and Regular Activity: You may bear weight as tolerated on your left leg. Cold/Heat Therapy: You may apply ice to the left knee for 15 minutes every hour as needed for pain control. Skin/Wound/Dressing Care Report to your healthcare provider any signs of infection, such as:: chills, fever, night sweats, increased pain, unusual drainage and unusual redness Dressing: You may remove the Mika wrap 3 days after surgery and shower normally with the deeper dressing in place. See the instructions for manjit dressings. Visit Report/Discharge Packet Instructions: DI for Knee Replacement Stand Alone Forms: Surgery Discharge Discharge Data Primary Care Provider: Cristiane lCaudio Attending Provider: Emanuel Dan
[2022-06-03 08:10] VITALS: BP 112/46; PULSE 81; RESP 18; TEMP 36.9; O2SAT 92
--- NOTE | 2022-06-03 08:55 | PT.IIE ---
Current Diagnoses Unilateral primary osteoarthritis, left knee (06/02/22) Surgery Performed Operation Date: 06/02/22 10:00 Actual Procedures p Total Knee Arthroplasty(Left) - Emanuel Dan MD Surgical History (Last Reviewed 06/02/22 @ 10:30 by Bethany Hernandez, SEE) History of lumpectomy of right breast (1995) History of total right knee replacement (09/29/20) Hx of colonoscopy Medical History (Last Reviewed 06/02/22 @ 08:42 by Ramirez Anne, SEE) Acid reflux Arthritis Depression Fracture Glomus tumor Headache, migraine History of benign breast biopsy HLD (hyperlipidemia) Hyperparathyroidism Hypertension LAFB (left anterior fascicular block) Osteoarthritis Osteoporosis Primary osteoarthritis of right knee RBBB Tumor of soft tissue of neck Physical Therapy Inpatient Evaluation/Re-Eval M1 PT/OT-IP Prior Functional Status Start: 06/02/22 15:27 Freq: NEEDED Status: Active Protocol: Document 06/03/22 08:55 AB (Rec: 06/03/22 12:29 AB [facility]) Medical Review Prior Functional Status Medical History Reviewed Yes Communication able to make needs known Mobility and Gait pt stated that she is modified independent with all mobilities and ambulation wihtout AD indoors but uses a 4WW for outdoor mobility Social History Household Members children Living Arrangements House Number of Floors (Floors) One Floor Number of Stairs To Enter/Railing? 1 step to enter Home Environment Standard Height Toilet,Tub/ Shower Home Equipment Front Wheel Walker,Four Wheel Walker,Quad Cane,Tub Transfer Bench,Leg Tapering Machine Operator,Grab Bars In Shower Additional Social History Comment pt lives with daugther and daughter will be able to assist pt M2 PT-IP Current Condition Start: 06/02/22 15:27 Freq: NEEDED Status: Active Protocol: Document 06/03/22 08:55 AB (Rec: 06/03/22 12:29 AB [id number]) Physical Therapy Current Condition Current Condition Evaluation Date 06/03/22 Treatment Diagnosis s/p L TKA; difficulty in walking Onset Date 06/02/22 M3 PT-IP Subjective Start: 06/02/22 15:27 Freq: NEEDED Status: Active Protocol: Document 06/03/22 08:55 AB (Rec: 06/03/22 12:29 AB [email or web address]) Subjective Physical Therapy Visit Type Type Initial Evaluation Visit Start Time 08:55 Visit Stop Time 09:40 Total Visit Minutes 45 Number of DIRECTOR OF [employer]ATIONS Visits 0 Physical Therapy Visit Comments Patient Comments agreeable to do PT; requesting to use the toile Therapy Pain Assessment Pain When Pain Assessed At Rest Pain Present Pain Present Pain Reported Location Left Knee Intensity 5 Scale Used Numeric (0 - 10) Pain Management Techniques Apply Cold,Distraction, Modification of Treatment,Re- positioning,Timing of Activity with Medications M4 PT-IP Mobility and Gait Start: 06/02/22 15:27 Freq: NEEDED Status: Active Protocol: Document 06/03/22 08:55 AB (Rec: 06/03/22 12:29 AB [email or web address]) PT-Bed Mobility Assessment Supine to Sit Supine to Sit Standby Assistance PT-Transfer Assessment Sit to and From Stand Sit to and from Stand Contact Guard Assistance,1 Person Assistance,Use of Upper Extremities Equipment Transfer Assistive Device Gait Belt,Front Wheeled Walker Orthotic/Prosthetic Devices or Brace: No Transfers Transfer Destination Toilet Transfer Technique ambulated Transfer Ability Level of Assist Contact Guard Assistance,1 Person Assistance,Use of Upper Extremities Comments Mobility Comments pt's daughter in room with pt. pt completed supine to sit SBA . able to sit on EOB SBA. pt' s daughter stated that pt had knee surgery last year and has helped pt after that. caregiver training intiated. educated daughter on how to use safety and how to assist pt. daughter was able to put safety belt on pt and assist pt with sit to stand and ambulation to the toilet using FWW CGA. pt completed sit to stand from the toilet CGA and assisted with hygiene care. pt ambulated towards the sink using FW CGA and was able to maintain standing using FWW for support while completing handwashing. pt ambulated to the chair using FWW CGA. pt rested. educated on stair climbing. pt stated that she has been doing stairs stepping backwards and prefers to do that. pt ambulated towards platform step using FWW CGA ~ 30 ft. attempted to to up backwards but unable to complete. completed up/down step using FWW forward with PT assisting min A and max cues. Pt repeated with daughter assisting and completed safely . pt ambulated back to her room using FWW CGA. positioned on the chair. call light and table placed within reach. Gait Assessment Gait Gait Assistance Required: Contact Guard Assist Distance (Feet) 30 Able to Maintain Weight Bearing Status Yes During Gait Assistive Devices Assistive Device Gait Belt,Front Wheeled Walker Orthotic/Prosthetic Devices or Brace: No Gait Deviations General Gait Pattern Antalgic,Decreased Stride Length,Decreased Feet Clearance,Step-to Gait Factors Limiting Gait Function Factors Limiting Gait Function Decreased Activity Tolerance, Decreased Strength,Limited Range of Motion,Pain,Poor Balance,Poor Safety Awareness Stair Climbing Assessment Evaluation Level of Assist On Stairs Minimal Assistance Devices Stair Climbing Assistive Devices Front Wheel Walker Technique/Endurance Stair Climbing Direction Ascend and Descend Stair Climbing Technique Step to Step Number of Steps Climbed 1 Query Text: Stair Climbing Set # Repetitions (reps) 2 PT-Balance Assessment Sitting Balance and Reactions Static Sitting Balance Ability Good Dynamic Sitting Balance Ability Good Standing Balance and Reactions Static Standing Balance Ability Fair Dynamic Standing Balance Ability Fair Device Used FWW M5 PT-IP Objective Assessments Start: 06/02/22 15:27 Freq: NEEDED Status: Active Protocol: Document 06/03/22 08:55 (Rec: 06/03/22 12:29 [email or web address]) Orientation Orientation/Cognition Level of Alertness Alert Orientation Name,Place,Situation Language Function Ability No Deficits Noted Safety Awareness Decreased Safety Awareness Gross Range of Motion Lower Extremity ROM Assessment Left Impaired Impairments L knee flexion: ~ 30 deg Strength Lower Extremity Strength Assessment Left Impaired Hip 3+/5 Knee 3+/5 Sensation Assessment Sensation Gross Sensation WNL Muscle Tone Muscle Tone WNL Yes M6 PT-IP Treatment Start: 06/02/22 15:27 Freq: NEEDED Status: Active Protocol: Document 06/03/22 08:55 (Rec: 06/03/22 12:29 [email or web address]) Physical Therapy Treatment Education Education Provided Precautions,Weight Bearing Status,Post-Op Packet,Safety M7 PT-IP Assessment and Plan Start: 06/02/22 15:27 Freq: NEEDED Status: Active Protocol: Document 06/03/22 08:55 (Rec: 06/03/22 12:29 [email or web address]) PT Summary Assessment and Plan Potential Rehabilitation Potential Fair Status of Condition at Evaluation Stable Summary Impairments Pain,ROM,Strength,Balance, Coordination,Sensation,Tone, Cognition,Bed Mobility, Transfers,Gait,Activity Tolerance Assessment Summary pt requiring CGA to min A with mobility using FWW. caregiver training conducted and daughter was able to assist pt safely. pt plans to go home with assistance and may go home when medically stable. Goals Bed Mobility Goal Independent Transfer Goal Independent,Front Wheeled Walker Gait Goal Independent,Front Wheel Walker Gait Distance 200 Other Goals up/down 1 step using FWW SBA Days to Meet Goals 5 Frequency of Treatment Frequency Of Treatment Twice a Day Treatment Plan Physical Therapy Treatment Plan Bed Mobility Training,Transfer Training,Gait Training, Therapeutic Exercise,Balance Retraining,Post Op Education, Discharge Planning,Hot or Cold Pack,Neuromuscular Re-ed, Coordination Retraining,Manual Therapy Weight Bearing Status Weight Bearing Status Weight Bear as Tolerated Allowed Weight Bearing Amount (enter % LLE WBAT or #) (%) Recommendations To Nursing Amount of Assist Needed 1 Person Assist Discharge Recommendations PT Discharge Recommendations Home with Assistance, Outpatient PT Transportation Needs at Discharge Private Vehicle
[2022-06-03] MEDS: ASPIRIN EC 81 MG TABLET PO (09:02)
[2022-06-03] MEDS: DOCUSATE 100 MG CAPSULE PO (09:02)
[2022-06-03] MEDS: ATORVASTATIN 20 MG TABLET PO (09:02)
[2022-06-03] MEDS: polyethylene glycoL 3350 17 GM POWD.PACK PO (09:04)
[2022-06-03 09:06] LABS: Hematocrit 34.7 % (36-46); Hemoglobin 11.5 g/dL (12.0-16.0)
--- NOTE | 2022-06-03 10:35 | CM.IDA ---
Initial DCP Assessment Note Patient is 72 y/o female who presents to after left TKA surgery performed by Dr. Dan. Patient has d/c orders for today. Patient's PCP is Dr. Cristiane Claudio, Patient has [facility] Advantage insurance. Patient has hx of Arthritis, HLD, HTN, Osteoporosis and Hyperparathyroidism. ROD FILLER enters room to meet with patient, present is patient's daughter. Patient presents as A/Ox3, patient endorses she resides with daughter in [place]. Patient endorses independence with most ADLs and states she uses a FWW at baseline. Daughter and patient endorse that daughter is able to assist patient with any needs. Daughter participated in caregiver training with PT this morning. Patient and daughter deny DCP needs at this time. ROD FILLER encourages patient's f/u with Surgeon Dr. Dan and PCP. Patient has scheduled post op f/u with Dr. Dan in two weeks per daughter. Plan: patient to d/c to home with daughter today upon medical clearance, no DCP needs at this time. ANOOP Read Discharge Planning/Care Management CM Discharge Assessment Start: 06/03/22 10:32 Freq: Status: Active Protocol: Document 06/03/22 10:32 LN (Rec: 06/03/22 10:35 LN [id number]) Discharge Planning Assessment Assigned Top [employer]rier ANOOP Colón Advance Directives? Yes Advance Directives on File No History Provided By Patient,Family Member,Medical Record Has Patient been admitted in last 30 No days? Prior Living Arrangements House Household Members children Type of transporation used prior to Drives own vehicle admit Independent with ADL's Yes Is patient alert and oriented? Yes DME Already Rented / Owned FWW / Walker Discharge Plan Home Referrals Initiated None needed Please Provide Date Initial DC 06/03/22
--- NOTE | 2022-06-03 13:37 | PC.NURSE ---
Day shift: Paperwork signed and all questions answered. Pt's Daughter in room for teachings. Left unit via WC at approx 1337. NI Waldrop helped her to car that Pt's Daughter is driving. VS ok. Pavithra dressing remains patent. No nausea. Pain well controlled per SEP. scripts sent electronic to Pt's pharmacy. Pt has all personal belongings.
== END 2022-06-03 13:40 | disposition home or self-care (01) ==
LOC: OR 08:05 → AC 08:05
PROVIDERS: PCP Nurse Practitioner Family; Referring Provider Orthopaedic Surgery; Visit Provider Orthopaedic Surgery
PROC: 0SRD0JZ Replacement of Left Knee Joint with Synthetic Substitute, Open Approach (ICD-10-PCS; CPT 27447; principal; 2022-06-02 10:00)
DX: M17.12 Unilateral primary osteoarthritis, left knee (principal); E66.01 Morbid (severe) obesity due to excess calories; Z68.43 Body mass index [BMI] 50.0-59.9, adult
CPT/HCPCS: 27447; 36415; 73560; 85014; 85018; 97161; 97530; C1776; C1713; C9290; J0171; J0330; J0690; J1170; J2270; J2405; J2704